=== PATIENT | male | born 1950 | race Caucasian/White ===

== ENCOUNTER 2022-10-11 07:00 | Day surgery (SDC) | payer MEDICARE ==
[2022-10-10 09:06] VITALS: BMI 23.9
[2022-10-11] MEDS ORDERED: Bupivacaine PF 0.5% 30 ML VIAL ONE (07:19)
[2022-10-11] MEDS ORDERED: EPINEPHrine 1 MG/ML AMP ONE (07:19)
[2022-10-11] MEDS ORDERED: CEFAZOLIN 2 GM VIAL ONE (08:42)
[2022-10-11] MEDS ORDERED: PROPOFOL 20 ML ONE (08:48)
[2022-10-11] MEDS ORDERED: Lidocaine 2% PF 5 ML VIAL ONE (08:48)
[2022-10-11] MEDS ORDERED: Ondansetron PF 4 MG/2 ML Vial ONE (08:48)
[2022-10-11] MEDS ORDERED: Fentanyl 100 MCG/2 ML VIAL ONE (08:48)
[2022-10-11] MEDS ORDERED: Acetaminophen 325 MG TAB PO PRN (09:38)
== END 2022-10-11 10:34 | disposition home or self-care (01) ==
LOC: CSHSDC 07:00
PROVIDERS: ATTEND Surgery
PROC: 0JH60WZ Insertion of Totally Implantable Vascular Access Device into Chest Subcutaneous Tissue and Fascia, Open Approach (ICD-10-PCS; principal; 2022-10-11)
DX: C20 Malignant neoplasm of rectum (principal); C79.51 Secondary malignant neoplasm of bone; I10 Essential (primary) hypertension; M10.9 Gout, unspecified; Z79.899 Other long term (current) drug therapy; C18.8 Malignant neoplasm of overlapping sites of colon
CPT/HCPCS: 36561; 71045; 77001; 80053; 82248; 83615; 84100; 84550; 93005; C1788; 36415; J0171; J1642; J2001; J2405; J2704; J3010; S0020